=== PATIENT | male | born 1970 | race Caucasian/White ===

== ENCOUNTER 2019-03-15 14:11 | Outpatient (CLI) | payer OTHER | END 2019-03-15 14:12 | disposition home or self-care (01) | LOC: CTENTCT 14:11 | PROVIDERS: ATTEND Otolaryngology Plastic Surgery within the Head & Neck | DX: J34.2 Deviated nasal septum (principal) | CPT/HCPCS: 70486 ==

== ENCOUNTER 2019-03-30 06:54 | Day surgery (SDC) | payer OTHER ==
[2019-03-29 12:41] VITALS: BMI 21.0
[2019-03-30] MEDS ORDERED: Oxymetazoline HCl 0.05% ( 15 ML ) ONE ×2 (09:06→10:15)
[2019-03-30] MEDS ORDERED: Fentanyl 250 MCG/5 ML VIAL ONE (09:27)
[2019-03-30] MEDS ORDERED: Lidocaine 1% w/Epinephrine 1:100K 20 ML VIAL ONE (10:15)
[2019-03-30] MEDS ORDERED: Rocuronium Bromide 10 MG/ML (10ML VIAL) ONE (11:47)
[2019-03-30] MEDS ORDERED: Lidocaine 1% PF 5 ML VIAL ONE (11:47)
[2019-03-30] MEDS ORDERED: PROPOFOL 200 MG/20 ML VIAL ONE (11:47)
[2019-03-30] MEDS ORDERED: Dexamethasone 20 MG/5 ML VIAL ONE (11:47)
[2019-03-30] MEDS ORDERED: Ondansetron PF 4 MG/2 ML Vial ONE (11:47)
[2019-03-30] MEDS ORDERED: Glycopyrrolate 0.2 MG/ML 5 ML SYRINGE ONE (11:47)
--- NOTE | 2019-03-30 12:21 | EKG ---
Test Reason : PREOP Blood Pressure : / mmHG Vent. Rate : 068 BPM Atrial Rate : 068 BPM P-R Int : 132 ms QRS Dur : 088 ms QT Int : 402 ms P-R-T Axes : 034 -04 064 degrees QTc Int : 427 ms Sinus rhythm with sinus arrhythmia with frequent Premature ventricular complexes T wave abnormality, consider anterior ischemia Abnormal ECG No previous ECGs available Confirmed by DR. Simone JORDAN ([id number]) on 03/30/2019 12:21:19 PM Referred By: EPI Confirmed By:DR. Simone JORDAN
--- NOTE | 2019-03-30 20:10 | OP ---
DATE OF PROCEDURE: 03/30/2019 PREOPERATIVE DIAGNOSES: 1. Chronic rhinosinusitis. 2. Bilateral nasal polyposis. 3. Nasal obstruction. 4. Bilateral inferior turbinate hypertrophy. POSTOPERATIVE DIAGNOSES: 1. Chronic rhinosinusitis. 2. Bilateral nasal polyposis. 3. Nasal obstruction. 4. Bilateral inferior turbinate hypertrophy. PROCEDURES PERFORMED: 1. Bilateral endoscopic sinus surgery, total ethmoidectomies with removal of tissue. 2. Bilateral endoscopic sinus surgery, maxillary antrostomies with removal of tissues. 3. Bilateral endoscopic sinus surgery, frontal sinusotomies with removal of tissue. 4. Bilateral inferior turbinate submucosal resection. ESTIMATED BLOOD LOSS: 20 mL. COMPLICATIONS: None. ANESTHESIA: GETA. PROCEDURE IN DETAIL: The patient was taken to the operating room and placed supine on the table. General endotracheal anesthesia was obtained by the Anesthesia staff. Tube was secured in the left lower lip, and the patient was placed in the beach chair position. Afrin pledgets were placed in the nasal cavity as the patient was prepped and draped for standard nasal procedure. Following this, a 0-degree endoscope was advanced into the nasal cavity. 1% lidocaine with 1:100,000 epinephrine was injected into the inferior turbinates, middle turbinates, and lateral nasal wall bilaterally. Following this, a large adrienne bullosa deformity of the left middle turbinate was resected using the 0-degree microdebrider. The uncinate process was then identified bilaterally and was anteriorly fractured using a ball-ended probe. Following this, the uncinate was then removed using the curved microdebrider and up-biting Blakesley forceps bilaterally. Following this, the natural maxillary sinus ostia were identified and were gently widened using the curved microdebrider and straight Blakesley forceps bilaterally. Polypoid tissue was found obstructing the maxillary sinus area as well as obstructing the majority of the middle meatus bilaterally. Following this, ethmoidal bulla was identified and was punctured on its medial and inferior aspects with the 0-degree microdebrider bilaterally. Following this, the ethmoidal bulla and anterior ethmoidal cells were opened using the curved microdebrider and up-biting Blakesley forceps. Polypoid tissue was found throughout the anterior ethmoidal sinuses as well as the posterior ethmoidal sinuses. Following this, the grand lamella was identified and was punctured into the posterior ethmoidal cells with the 0-degree microdebrider. Working from posterior to anterior, the ethmoidal cells were opened . Following this, a 45-degree endoscope along with the curved microdebrider was used to open the anterior ethmoidal cells and expose the frontal sinus ostia. Following this, the frontal sinus ostia were widened using the curved microdebrider bilaterally. Polypoid tissue was found throughout the frontal sinus ostia and frontal sinuses bilaterally. Cultures were taken of tissue as well as purulent secretions from the ethmoidal sinuses. Following this, the nasal cavity was irrigated. Inferior turbinates were then punctured on the anterior and inferior aspect with the submucosal microdebrider, and the submucosal resection was performed of the anterior and inferior portions of the inferior turbinates. The nasal cavity was irrigated. Mirapex was placed within the middle meatus. The patient tolerated the procedure well. Job ID: [id number]
== END 2019-03-30 13:00 | disposition home or self-care (01) ==
LOC: SDC 06:54
PROVIDERS: ATTEND Otolaryngology Plastic Surgery within the Head & Neck
PROC: 099R8ZZ Drainage of Left Maxillary Sinus, Via Natural or Artificial Opening Endoscopic (ICD-10-PCS; principal; 2019-03-30)
PROC: 099Q8ZZ Drainage of Right Maxillary Sinus, Via Natural or Artificial Opening Endoscopic (ICD-10-PCS; principal; 2019-03-30)
PROC: 09TL8ZZ Resection of Nasal Turbinate, Via Natural or Artificial Opening Endoscopic (ICD-10-PCS; principal; 2019-03-30)
DX: J32.4 Chronic pansinusitis (principal); J34.3 Hypertrophy of nasal turbinates; J33.9 Nasal polyp, unspecified; F41.9 Anxiety disorder, unspecified; F32.9 Major depressive disorder, single episode, unspecified; Z79.899 Other long term (current) drug therapy; Z87.891 Personal history of nicotine dependence
CPT/HCPCS: 87070; 87077; 87102; 87205; 87206; 93005; 93010; J0131; J1100; J2001; J2405; J2704; J3010